=== PATIENT | male | born 2000 | race Caucasian/White ===

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

== ENCOUNTER 2020-10-30 18:03 | Observation (INO) ==
[2020-10-30] MEDS ORDERED: KETOROLAC TROMETHAMINE 15 MG/ML VIAL IV STA (18:22)
[2020-10-30] MEDS ORDERED: SODIUM CHLORIDE 0.9% 1000ML 1,000 ML IV STA (18:22)
[2020-10-30] MEDS ORDERED: ONDANSETRON INJ 2 MG/ML 2 ML VIAL IV STA (18:22)
--- NOTE | 2020-10-30 18:28 | Emergency Department Note ---
Impression & Plan Acute appendicitis ED Provider Note CHIEF COMPLAINT: Right lower abdominal pain HISTORY OF PRESENTING ILLNESS: This is a 20-year-old male who presents to the emergency department by private vehicle with complaint of right-sided abdominal pain that started yesterday and has gotten progressively worse today. Patient states that the pain is worse with walking, going over bumps in his car, and bending over at the waist, he describes it as a dull ache and it has been constant, he rates the pain 6/10. He has not tried any medications for the pain. He has had associated nausea and a very poor appetite today. He last ate solid food around noon and drank some water around 4:30 PM today. He has felt feverish and had some chills this evening, but he did not check his temperature. He had a bowel movement a few hours ago and notes that it was loose. He denies any watery diarrhea or constipation, no bloody or black stools. He has not vomited. He denies any urinary symptoms. He denies any history of abdominal problems or surgeries. REVIEW OF SYSTEMS: A complete 10 point review of systems was reviewed with the patient with pertinent positives and negatives as per history of present illness. All else were negative. PAST MEDICAL HISTORY: No significant past medical or surgical history SOCIAL HISTORY: Lives at home, denies tobacco use ALLERGIES: No known allergies PHYSICAL EXAM: CONSTITUTIONAL: Pleasant and cooperative. Nontoxic-appearing and in no acute distress. Mildly dehydrated, but otherwise well appearing and well nourished. HEENT: Normocephalic, atraumatic. Pharynx normal. Tacky mucous membranes. NECK: Supple, full active range of motion without discomfort. RESPIRATORY: Clear to auscultation bilaterally with no wheezing, crackles, rhonchi or stridor. Equal expansion bilaterally. CARDIOVASCULAR: Regular rate and rhythm with no murmurs, rubs or gallops. Normal peripheral perfusion. No edema. GASTROINTESTINAL: Pointedly tender in the right lower quadrant with slight guarding, no rebound tenderness. The abdomen is otherwise nontender, soft and nondistended. No palpable masses or HSM. Bowel sounds present in all quadrants. Mild right-sided CVA tenderness to percussion. No left-sided CVA tenderness. MUSCULOSKELETAL: Full range of motion of all joints without discomfort. INTEGUMENTARY: No rash or other significant dermatologic conditions noted. NEUROLOGIC: Alert and oriented X 4 with normal affect. Normal strength and sensation in all 4 extremities. Normal speech. Normal gait observed. ED COURSE AND MEDICAL DECISION MAKING: CC: Patient presenting with complaint of right lower abdominal pain DIFFERENTIAL DIAGNOSIS: Includes, but not limited to appendicitis, mesenteric adenitis, epiploic appendagitis, infections, diverticulitis, UTI, small bowel obstruction, inflammatory bowel disease, renal colic/ureteral stone, PUD, biliary pathology, hernia, volvulus, constipation, as well as other pathologies. INTERPRETATION OF LABS: Leukocytosis, no anemia, normal platelets, no significant electrolyte abnormalities, normal renal function, normal liver enzymes and lipase. COVID-19 negative. MEDICATION RECONCILIATION: I attest that I have personally reviewed the patient's current medication list. INITIAL VITAL SIGNS REVIEW: I reviewed the patient's initial vital signs and interpret them as follows: T: Afebrile; BP: Normotensive; HR: Within normal limits; RR: Within normal limits; Pulse Ox: Within normal limits on room air. MDM SUMMARY: Patient was evaluated at bedside, history and physical exam performed. Patient is alert and oriented, in no acute distress, resting calmly in stretcher. He is afebrile and nontoxic-appearing, but does appear to be mildly dehydrated clinically. He is quite tender to palpation over the right lower quadrant with some guarding, but no acute abdomen/peritoneal signs. Orders were placed for labs, UA, IV fluid bolus for hydration, IV Toradol for pain, IV Zofran for nausea, CT abdomen/pelvis with IV contrast to evaluate for abdominal pain. Patient discussed with Dr. Queen, who agrees with my assessment, plan, and disposition. Labs and imaging reviewed, labs notable for leukocytosis. CT imaging is concerning for possible acute appendicitis. I spoke on the phone with Dr. Moralez, general surgery, who agrees to come in and evaluate the patient for possible appendicitis. I did give the patient a dose of IV Mefoxin per his recommendation. Patient reassessed multiple times throughout ED stay, he has remained hemodynamically stable and afebrile, he notes his pain and nausea are improved after the Toradol and Zofran. The patient was updated on all results and plan for evaluation by the surgeon and possible surgery, all questions were answered to the best my ability and the patient was agreeable to this plan. After evaluation, Dr. Moralez is planning to take the patient to the OR this evening. The patient was stable at time of admission. The chart was completed utilizing [employer] Speech voice recognition software. Grammatical errors, random word insertions, pronoun errors, and incomplete sentences are an occasional consequence of this system due to software li mitations, ambient noise, and hardware issues. Any formal questions or concerns about the content, text, or information contained within the body of this dictation should be directly addressed to the nurse practitioner for clarification. Past Med/Surg History Social History Smoking Status: Never smoker Feels Safe at Home: Yes Allergies Allergies Allergy/AdvReac Type Severity Reaction Status Date / Time No Known Allergies Allergy Unverified 10/30/20 18:46 Home Meds Home Medications Medication Instructions Recorded Confirmed No Known Home Medications 10/30/20 10/30/20 Results & Data (ED) Vital Signs Vital Signs - 24 hr 10/30/20 18:05 10/30/20 18:30 Temperature 36.5 C Temperature Source Skin Pulse Rate 78 Pulse Rate [Apical] 83 Pulse Rhythm [Apical] Regular Respiratory Rate 20 16 Respiratory Effort / Characteristics Non-Labored Spontaneous Non-Labored Respiratory Depth Normal Normal Blood Pressure 137/79 Blood Pressure [Right Arm] 139/75 Blood Pressure Mean 98 Blood Pressure Mean [Right Arm] 96 Pulse Oximetry 97 99 Oxygen Delivery Method Room Air Room Air Sepsis Recent Fever Within 48 Hours No Sepsis New/Unexplained Change in Mental Status N/A Sepsis Action Taken by Nursing No Action Required Laboratory Data Result diagrams: 10/30/20 18:31 10/30/20 18:31 Lab Results 10/30/20 10/30/20 10/30/20 Range/Units 18:31 18:31 19:12 WBC 20.04 H (4.8-10.8) K/uL RBC 4.99 (4.7-6.1) M/uL Hgb 16.0 (14.0-18.0) g/dL Hct 45.7 (42-52) % MCV 91.6 (80-100) fL MCH 32.1 (25-34) pg MCHC 35.0 (32-36) g/dL RDW Std Deviation 44.2 (36.4-46.3) fL RDW Coeff of Kit 13.3 (11.5-14.5) % Plt Count 273 (130-400) K/uL MPV 10.5 H (7.4-10.4) fL Immature Gran % (Auto) 0.2 % Neut % (Auto) 83.7 % Lymph % (Auto) 7.2 % Marin % (Auto) 8.7 % Eos % (Auto) 0.1 % Baso % (Auto) 0.1 % Neut # (Auto) 16.75 H (1.4-6.5) K/uL Lymph # (Auto) 1.45 (1.2-3.4) K/uL Marin # (Auto) 1.75 H (0.11-0.59) K/uL Eos # (Auto) 0.02 (0-0.5) K/uL Baso # (Auto) 0.02 (0-0.2) K/uL Immature Gran # (Auto) 0.05 H (0.00-0.02) K/uL Sodium 136 (136-145) mmol/L Potassium 3.5 (3.5-5.1) mmol/L Chloride 101 (98-107) mmol/L Carbon Dioxide 32 (21-32) mmol/L Anion Gap 3.0 (3-11) BUN 13 (7-18) mg/dl Creatinine 0.99 (0.6-1.4) mg/dl Est Cr Clr Drug Dosing 124.7 ml/min Est GFR ( Amer) 124.8 ml/min Est GFR (Non-Af Amer) 107.7 ml/min BUN/Creatinine Ratio 13.5 (10-20) Glucose 99 (70-99) mg/dl Calcium 8.6 (8.5-10.1) mg/dl Total Bilirubin 0.5 (0.2-1) mg/dl AST 20 (15-37) U/L ALT 33 (12-78) U/L Alkaline Phosphatase 61 (45-117) U/L Total Protein 8.6 H (6.4-8.2) gm/dl Albumin 4.4 (3.4-5.0) gm/dl Globulin 4.2 H (2.5-4.0) gm/dl Albumin/Globulin Ratio 1.0 (0.9-2) Lipase 94 (73-393) U/L COVID-19 Eval Order Covid19 at [facility] SARS-CoV-2 (PCR) (Negative) 10/30/20 Range/Units 19:12 WBC (4.8-10.8) K/uL RBC (4.7-6.1) M/uL Hgb (14.0-18.0) g/dL Hct (42-52) % MCV (80-100) fL MCH (25-34) pg MCHC (32-36) g/dL RDW Std Deviation (36.4-46.3) fL RDW Coeff of Kit (11.5-14.5) % Plt Count (130-400) K/uL MPV (7.4-10.4) fL Immature Gran % (Auto) % Neut % (Auto) % Lymph % (Auto) % Marin % (Auto) % Eos % (Auto) % Baso % (Auto) % Neut # (Auto) (1.4-6.5) K/uL Lymph # (Auto) (1.2-3.4) K/uL Marin # (Auto) (0.11-0.59) K/uL Eos # (Auto) (0-0.5) K/uL Baso # (Auto) (0-0.2) K/uL Immature Gran # (Auto) (0.00-0.02) K/uL Sodium (136-145) mmol/L Potassium (3.5-5.1) mmol/L Chloride (98-107) mmol/L Carbon Dioxide (21-32) mmol/L Anion Gap (3-11) BUN (7-18) mg/dl Creatinine (0.6-1.4) mg/dl Est Cr Clr Drug Dosing ml/min Est GFR ( Amer) ml/min Est GFR (Non-Af Amer) ml/min BUN/Creatinine Ratio (10-20) Glucose (70-99) mg/dl Calcium (8.5-10.1) mg/dl Total Bilirubin (0.2-1) mg/dl AST (15-37) U/L ALT (12-78) U/L Alkaline Phosphatase (45-117) U/L Total Protein (6.4-8.2) gm/dl Albumin (3.4-5.0) gm/dl Globulin (2.5-4.0) gm/dl Albumin/Globulin Ratio (0.9-2) Lipase (73-393) U/L COVID-19 Eval Order SARS-CoV-2 (PCR) NEGATIVE (Negative) Administered Medications Discontinued Medications Sodium Chloride (Nss 1000ml) 1,000 mls @ 999 mls/hr IV .Q1H1M STA Stop: 10/30/20 19:22 Last Infusion: 10/30/20 20:23 Dose: 0 mls/hr Documented by: [id number] Admin: 10/30/20 18:37 Dose: 999 mls/hr Documented by: [id number] Cefoxitin Sodium (Mefoxin) 2,000 mg in 60 mls @ 100 mls/hr IV NOW STA Stop: 10/30/20 20:56 Last Admin: 10/30/20 20:34 Dose: 100 mls/hr Documented by: [id number] Ioversol (Optiray 320 100ml) 94 ml IV ONCE ONE Stop: 10/30/20 19:20 Last Admin: 10/30/20 19:20 Dose: 1 ml Documented by: [id number] Ketorolac Tromethamine (Ketorolac Tromethamine 15 Mg/Ml Vial) 10 mg IV NOW STA Stop: 10/30/20 18:23 Last Admin: 10/30/20 18:37 Dose: 10 mg Documented by: [id number] Ondansetron HCl (Ondansetron Inj 2 Mg/Ml 2 Ml Vial) 4 mg IV NOW STA Stop: 10/30/20 18:23 Last Admin: 10/30/20 18:37 Dose: 4 mg Documented by: [id number] Imaging Data Radiologist's Impression: Abdomen/Pelvis CT 10/30/20 18:22 CT abd pelvis IV con only CLINICAL HISTORY: RLQ pain COMPARISON STUDY: None. TECHNIQUE: A dose lowering technique was utilized adhering to the principles of ALARA. CT DOSE: 361.59 mGy.cm FINDINGS: Lower chest: Limited evaluation of lung bases shows no evidence of acute abnormalities.. Liver: The contrast-enhanced liver is normal in size, contour, and attenuation. There is no intrahepatic biliary ductal dilatation. The hepatic veins and portal veins are patent. Gallbladder: Unremarkable. Spleen: Normal in size and attenuation. Pancreas: Unremarkable. Adrenal glands: Unremarkable. Kidneys: There is symmetric renal cortical enhancement. The kidneys are normal in size without hydronephrosis. Pelvic viscera: The bladder, and pelvic viscera are unremarkable. Bowel: Bowel loops are nondilated. Appendix is not dilated and fluid-filled. There is mild fat stranding is seen within right lower quadrant and few focal areas of increased attenuation within cecum (3/254). A few slightly prominent lymph nodes are seen within the right lower quadrant. Peritoneum: There is no intraperitoneal free air or abdominal ascites. Vasculature: The abdominal aorta is normal in course and caliber. Adenopathy: There is no retroperitoneal lymphadenopathy seen. Skeletal structures: No destructive osseous lesions are seen. IMPRESSION: 1. Nondilated appendix. Inflammatory changes and slightly prominent lymph nodes within the right lower quadrant. Differential diagnosis include developing appendicitis, Meckel diverticulitis or epiploic appendicitis. No drainable fluid collection or free intra-abdominal gas is seen at this time. Please correlate above-mentioned findings with surgical evaluation. Findings where sent to emergency Department at time of this dictation. ACT 112: Positive. There are findings on this exam that require communication between the performing entity and the patient following Patient Test Result Information Act ([place] Act 112) guidelines. The above report was generated using voice recognition software. It may contain grammatical, syntax or spelling errors. Electronically signed by: Julianna Dominguez DO 10/30/2020 8:06 PM Discharge Plan Visit Data Chief Complaint: Abdominal Pain Stated Complaint: RIGHT SIDE SHARP ABDOMINAL PAIN,NAUSEA ED Provider: Denis Queen ED Midlevel Provider: Ree Martinez Discharge Problem: Acute appendicitis Patient Disposition: Admitted As Inpatient Condition: Good Discharge Instructions Interventions: ED Discharge Assessment Last Done: 10/30/20 21:19 Forms Stand Alone Forms: [facility], [facility] Emergency Department, Important Visit Information Prescriptions Prescriptions: No Action No Known Home Medications RF: 0 Referrals Referrals: PCP,NO [Primary Care Provider] - Discharge Problem: Acute appendicitis Qualifiers: Acute appendicitis type: with localized peritonitis Appendicitis gangrene presence: unspecified whether gangrene present Appendicitis perforation presence: unspecified whether perforation present Appendicitis abscess presence: unspecified whether abscess present Qualified Code(s): K35.30 - Acute appendicitis with localized peritonitis, without perforation or gangrene
[2020-10-30 18:42] LABS: Basophils # (auto) 0.02 K/uL (0-0.2); Basophils % (auto) 0.1 %; Eosinophils # (auto) 0.02 K/uL (0-0.5); Eosinophils % (auto) 0.1 %; Hematocrit (blood only) 45.7 % (42-52); Immature Granulocytes # (auto) 0.05 K/uL (0.00-0.02); Immature Granulocytes % (auto) 0.2 %; Lymphocytes # (auto) 1.45 K/uL (1.2-3.4); Lymphocytes % (auto) 7.2 %; Mean Corpuscular Hemoglobin 32.1 pg (25-34); Mean Corpuscular Volume 91.6 fL (80-100); Mean Platelet Volume 10.5 fL (7.4-10.4); Monocytes # (auto) 1.75 K/uL (0.11-0.59); Monocytes % (auto) 8.7 %; Neutrophils # (auto) 16.75 K/uL (1.4-6.5); Neutrophils % (auto) 83.7 %; Platelet Count 273 K/uL (130-400); RDW Coefficient of Variation 13.3 % (11.5-14.5); RDW Standard Deviation 44.2 fL (36.4-46.3); Red Blood Count 4.99 M/uL (4.7-6.1); White Blood Count 20.04 K/uL (4.8-10.8)
[2020-10-30 19:06] LABS: Albumin Level 4.4 gm/dl (3.4-5.0); BUN Creatinine Ratio 13.5 (10-20); Calcium 8.6 mg/dl (8.5-10.1); Creatinine Clr Calc Pharmacy 124.7 ml/min; Est GFR (African American) 124.8 ml/min; Est GFR (Non-African American) 107.7 ml/min; Potassium 3.5 mmol/L (3.5-5.1)
[2020-10-30 19:09] LABS: Bilirubin,Total 0.5 mg/dl (0.2-1); Globulin 4.2 gm/dl (2.5-4.0); Total Protein 8.6 gm/dl (6.4-8.2)
[2020-10-30] MEDS ORDERED: OPTIRAY 320 100ml IV ONE (19:19)
--- NOTE | 2020-10-30 20:07 | CT Scan Report ---
CT abd pelvis IV con only CLINICAL HISTORY: RLQ pain COMPARISON STUDY: None. TECHNIQUE: A dose lowering technique was utilized adhering to the principles of ALARA. CT DOSE: 361.59 mGy.cm FINDINGS: Lower chest: Limited evaluation of lung bases shows no evidence of acute abnormalities.. Liver: The contrast-enhanced liver is normal in size, contour, and attenuation. There is no intrahepa tic biliary ductal dilatation. The hepatic veins and portal veins are patent. Gallbladder: Unremarkable. Spleen: Normal in size and attenuation. Pancreas: Unremarkable. Adrenal glands: Unremarkable. Kidneys: There is symmetric renal cortical enhancement. The kidneys are normal in size without hydron ephrosis. Pelvic viscera: The bladder, and pelvic viscera are unremarkable. Bowel: Bowel loops are nondilated. Appendix is not dilated and fluid-filled. There is mild fat strand ing is seen within right lower quadrant and few focal areas of increased attenuation within cecum (3/ 254). A few slightly prominent lymph nodes are seen within the right lower quadrant. Peritoneum: There is no intraperitoneal free air or abdominal ascites. Vasculature: The abdominal aorta is normal in course and caliber. Adenopathy: There is no retroperitoneal lymphadenopathy seen. Skeletal structures: No destructive osseous lesions are seen. IMPRESSION: 1. Nondilated appendix. Inflammatory changes and slightly prominent lymph nodes within the right low er quadrant. Differential diagnosis include developing appendicitis, Meckel diverticulitis or epiploi c appendicitis. No drainable fluid collection or free intra-abdominal gas is seen at this time. Pleas e correlate above-mentioned findings with surgical evaluation. Findings where sent to emergency Depar tment at time of this dictation. ACT 112: Positive. There are findings on this exam that require communication between the performing entity and the patient following Patient Test Result Information Act ([place] Act 112) guidelines. The above report was generated using voice recognition software. It may contain grammatical, syntax o r spelling errors. Electronically signed by: Julianna Dominguez DO 10/30/2020 8:06 PM
[2020-10-30] MEDS ORDERED: cefOXitin 2,000 MG/60 ML BAG IV STA (20:21)
[2020-10-30] MEDS ORDERED: BUPIVACAINE/EPINEPHRINE 0.5% MPF 1:200,000 30 ML VIAL ONE (21:01)
[2020-10-30] MEDS ORDERED: LABETALOL HCL IV 5 MG/ML 20ML IV PRN (21:08)
[2020-10-30] MEDS ORDERED: ATROPINE SULFATE 0.1 MG/ML 10ML SYR IV PRN (21:08)
[2020-10-30] MEDS ORDERED: ePHEDrine sulfate 50 MG/ML AMP IV PRN (21:08)
[2020-10-30] MEDS ORDERED: ONDANSETRON INJ 2 MG/ML 2 ML VIAL IV PRN ×2 (21:08→23:58)
[2020-10-30] MEDS ORDERED: PHENYLEPHRINE 100MCG/ML 5ML SYR IV PRN (21:08)
[2020-10-30] MEDS ORDERED: HYDROmorphone INJ 1 MG/ML SYRINGE IV PRN (21:08)
[2020-10-30] MEDS ORDERED: MEPERIDINE HCL 25 MG/ML CARP/VIAL IV PRN (21:08)
[2020-10-30] MEDS ORDERED: fentaNYL citrate 100 MCG/2 ML VIAL IV PRN (21:08)
--- NOTE | 2020-10-30 21:13 | History & Physical Report ---
Date of Service October 30, 2020 Assessment & Plan (1) Acute appendicitis: Suspect acute appendicitis. CT scan reviewed. Discussed options with patient both conservative and surgical. I am recommending laparoscopic possible open appendectomy this evening. We discussed bleeding, infection, injury to another organ such as ureter bowel bladder etc., DVT, PE, MN, CVA etc. Following our discussion I answered his questions. We will proceed this evening with laparoscopic/possible open appendectomy History of Present Illness Chief Complaint: Right lower quadrant abdominal pain Primary Care Provider: NO PCP 20-year-old who began with generalized abdominal discomfort and nausea yesterday. Today the pain progressed to the right lower quadrant became more severe. WBC is 20,000. CT shows inflammation in the right lower quadrant with a differential of appendicitis, Meckel's diverticulitis, or epiploic appendagitis Allergies Allergy/AdvReac Type Severity Reaction Status Date / Time No Known Allergies Allergy Unverified 10/30/20 18:46 Home Medications Medication Instructions Recorded Confirmed Type No Known Home Medications 10/30/20 10/30/20 History Past Med/Surg History Social History Smoking Status: Never smoker Feels Safe at Home: Yes Review of Systems All systems reviewed & are unremarkable except as noted in HPI & below Physical Exam Constitutional: WD/WN, vitals as above no acute distress and not ill appearing Eyes: PERRL, conjunctivae normal, anicteric sclerae EOM intact bilaterally ENMT: external ear and nose normal, oropharynx normal Ears: no hearing impairment Neck: trachea midline, no thyromegaly Respiratory: normal respiratory effort; no respiratory distress and does not use accessory muscles Cardiovascular: Rate/Rhythm: regular rate and regular rhythm Gastrointestinal (Abdomen): Soft. Positive McBurney's. Positive heel strike. Positive rebound Skin: no rashes, warm and dry Psychiatric: Orientation: alert, oriented x 3 and cooperative Results & Data ([facility]) Vital Signs (Past 12 Hours) Vital Signs Temp Pulse Pulse Resp BP BP Pulse Ox 10/30/20 18:30 83 16 139/75 99 10/30/20 18:05 36.5 C 78 20 137/79 97
[2020-10-30] MEDS ORDERED: fentaNYL citrate 100 MCG/2 ML VIAL ONE (21:23)
[2020-10-30] MEDS ORDERED: MIDAZOLAM HCL 1 MG/ML 2ML VIAL ONE (21:23)
--- NOTE | 2020-10-30 21:39 | Anesthesiology Consultation ---
Date of Service October 30, 2020 Assessment & Plan (1) Encounter for pre-operative examination: Chart Review Chart Review: Acceptable Risk for Surgery and Patient NOT seen in Pre Admission Testing Consults Requested none History Surgery Operation Date: 10/30/20 21:15 Proposed Procedures p Laparoscopic Appendectomy - Chance Moralez DO Height/Weight Height: 5 ft 11 in Weight: 78.2 kg Allergies Allergy/AdvReac Type Severity Reaction Status Date / Time No Known Allergies Allergy Unverified 10/30/20 18:46 Medications Home Medications Medication Instructions Recorded Confirmed Last Taken No Known Home Medications 10/30/20 10/30/20 Unknown NPO Date Last Intake of Fluids: 10/30/20 Time Last Intake of Fluids: 16:00 Date Last Intake of Solids: 10/30/20 Time Last Intake of Solids: 12:00 Past Surgical History Surgical History H/O shoulder surgery Social History Smoking Status: Never smoker Physical Exam Vital Signs Last Vital Signs Temp 36.5 C 10/30/20 18:05 Pulse 83 10/30/20 18:30 Resp 16 10/30/20 18:30 BP 139/75 10/30/20 18:30 Pulse Ox 99 10/30/20 18:30 Testing Laboratory Results 10/30/20 18:31 10/30/20 18:[address] abd pelvis IV con only CLINICAL HISTORY: RLQ pain COMPARISON STUDY: None. TECHNIQUE: A dose lowering technique was utilized adhering to the principles of ALARA. CT DOSE: 361.59 mGy.cm FINDINGS: Lower chest: Limited evaluation of lung bases shows no evidence of acute abnormalities.. Liver: The contrast-enhanced liver is normal in size, contour, and attenuation. There is no intrahepatic biliary ductal dilatation. The hepatic veins and portal veins are patent. Gallbladder: Unremarkable. Spleen: Normal in size and attenuation. Pancreas: Unremarkable. Adrenal glands: Unremarkable. Kidneys: There is symmetric renal cortical enhancement. The kidneys are normal in size without hydronephrosis. Pelvic viscera: The bladder, and pelvic viscera are unremarkable. Bowel: Bowel loops are nondilated. Appendix is not dilated and fluid-filled. There is mild fat stranding is seen within right lower quadrant and few focal areas of increased attenuation within cecum (3/254). A few slightly prominent lymph nodes are seen within the right lower quadrant. Peritoneum: There is no intraperitoneal free air or abdominal ascites. Vasculature: The abdominal aorta is normal in course and caliber. Adenopathy: There is no retroperitoneal lymphadenopathy seen. Skeletal structures: No destructive osseous lesions are seen. IMPRESSION: 1. Nondilated appendix. Inflammatory changes and slightly prominent lymph nodes within the right lower quadrant. Differential diagnosis include developing appendicitis, Meckel diverticulitis or epiploic appendicitis. No drainable fluid collection or free intra-abdominal gas is seen at this time. Please correlate above-mentioned findings with surgical evaluation. Findings where sent to emergency Department at time of this dictation. ACT 112: Positive. There are findings on this exam that require communication between the performing entity and the patient following Patient Test Result Information Act ([place] Act 112) guidelines. The above report was generated using voice recognition software. It may contain grammatical, syntax or spelling errors. Electronically signed by: Julianna Dominguez DO 10/30/2020 8:06 PM Dictated: 10/30/201948Transcribed: 10/30/201950
[2020-10-30 21:54] LABS: Appearance Urine Cloudy (Clear); Bacteria Urine Automated Negative (Negative); Bilirubin Urine Negative (Negative); Blood Urine Negative (Negative); Cast Urine Automated 0 /lpf (0-5); Color Urine Yellow; Glucose Urine UA Negative (Negative); Ketones Urine Negative (Negative); Leukocyte Esterase Urine Negative (Negative); Nitrite Urine Negative (Negative); Protein Urine Negative (Negative); RBC Urine Automated 0-4 /hpf (0-4); Specific Gravity Urine > 1.045 (1.000-1.030); Urobilinogen Urine Negative (Negative); pH Urine 7.5 (4.5-7.5)
[2020-10-30] MEDS ORDERED: PROPOFOL IV EMULSION 10 MG/ML 20 ML VIAL IV ONE (22:04)
[2020-10-30] MEDS ORDERED: SUCCINYLCHOLINE CHLORIDE 20 MG/ML 10 ML VIAL IV ONE (22:04)
[2020-10-30] MEDS ORDERED: ROCURONIUM BROMIDE 10 MG/ML 5 ML VIAL IV ONE (22:04)
[2020-10-30] MEDS ORDERED: ONDANSETRON INJ 2 MG/ML 2 ML VIAL ONE (22:05)
[2020-10-30] MEDS ORDERED: LIDOCAINE 2% 2 ML VIAL/AMP(20MG/ML) INFIL ONE (22:05)
[2020-10-30] MEDS ORDERED: NEOSTIGMINE METHYLSULFATE 1 MG/ML 10ML VIAL ONE (22:05)
[2020-10-30] MEDS ORDERED: GLYCOPYRROLATE 0.2 MG/ML VIAL ONE (22:05)
[2020-10-30] MEDS ORDERED: DEXAMETHASONE SOD INJ 4 MG/ML VIAL ONE ×2 (22:05)
[2020-10-30] MEDS ORDERED: ESMOLOL HCL INJ 10 MG/ML 10ML VIAL IV ONE (22:10)
[2020-10-30] MEDS ORDERED: KETOROLAC 30 MG/ML VIAL ONE (22:42)
[2020-10-30] MEDS ORDERED: PIPERACILL/TAZOBAC CONSULT ACTIVE PRN (22:45)
--- NOTE | 2020-10-30 22:46 | Operative Report ---
PG Post Operative Report Pre & Post Diagnosis Operation Date: 10/30/20 21:15 Pre-Op Diagnosis: Acute appendicitis Post-Op Diagnosis: epiploic appendagitis with secondary appendicitis I identified the patient and participated in the time-out.: Yes Procedure Operation Date: 10/30/20 21:15 Actual Procedures p Laparoscopic Appendectomy with abdominal washout(Not Applicable) - Chance Moralez DO Surgeon Chance Moralez DO Account Financial Manager radha Rosen Estimated Blood Loss 10 Findings Consistent with Post-Op Diagnosis Specimens appendix Description of Procedure After informed consent was obtained the patient was taken to the operating room and placed in supine position. After successful intubation the left arm was tucked. The abdomen was shaved and sterilely prepped and draped in usual fashion. A supraumbilical incision was made with an 11 blade scalpel and carried down through the soft tissues using cautery. Anterior rectus fascia was opened using cautery and two #0 Vicryl stay sutures were placed. Peritoneum was elevated with hemostats and incised under direct vision using a Metzenbaum scissor. A finger sweep was performed take down any underlying adhesions and a 12 mm Carrero trocar was placed. The abdomen was insufflated to 18 mmHg. A suprapubic 5 mm port and a left lower quadrant 12 mm port were placed under direct vision. The patient was placed in the Trendelenburg position and slightly airplaned to the left. Immediately we noted purulent fluid in the right lower quadrant as well as some generalized inflammation. I began by suctioning out this area. There appeared to be an infarcted epiploica on the cecum. The appendix itself was laying in purulent fluid and appeared to be secondarily inflamed. After irrigating out the right lower quadrant I grasped the appendix and elevated it. A KENNETH brown cartridge linear stapler was used to transect the mesentery of the appendix as well as the appendix itself. It was placed into an Endo Catch bag and removed from the camera port site. I manipulated the infarcted epiploica and normally I would resect this however it was located just anterior to the ileocecal valve. I was concerned that by removing this I could potentially stricture the terminal ileum. I therefore opted not to do this. We did run the terminal ileum backwards for probably 10 feet all of which was normal. There is some purulent fluid in the pelvis as well which we thoroughly irrigated and suctioned out as well as the remainder of the lower abdomen. At the end of the procedure all the irrigant was clear. There was adequate hemostasis. All of the other organs appeared normal. All the trochars were removed and the abdomen was desufflated. The fascia of the camera port as well as left lower quadrant were closed using 0 Vicryl in [id number] fashion. All the wounds were irrigated and closed using 4-0 Monocryl. Marcaine with epinephrine was injected around them for postoperative analgesia and skin glue used as a dressing. Patient was awakened extubated transferred recovery in stable condition. My physician assistant clinical nurse manager was present for the entire case. He helped prep the patient. He helped run the camera during my dissection as well as with wound closure and dressing placement. I attest to the content of the Intraoperative Record and any orders documented therein. Any exceptions are noted below.
[2020-10-30] MEDS ORDERED: PIPERACILLIN/TAZOBACTAM 4.5 GM in DEXTROSE 5% 100 ML IV STA (22:47)
--- NOTE | 2020-10-30 23:49 | Anesthesiology Progress Note ---
Date of Service October 30, 2020 Anesthesia Post Procedure Vital Signs Vital Signs: Temp Pulse Pulse Resp BP BP BP 10/30/20 23:30 37.6 C H 85 22 109/50 L 10/30/20 23:20 80 21 109/50 L 10/30/20 23:10 76 19 112/47 L 10/30/20 23:02 37.8 C H 94 H 16 119/52 L 10/30/20 18:30 83 16 139/75 10/30/20 18:05 36.5 C 78 20 137/79 Pulse Ox 10/30/20 23:30 95 10/30/20 23:20 95 10/30/20 23:10 98 10/30/20 23:02 95 10/30/20 18:30 99 10/30/20 18:05 97 Pain Intensity Right Lower Abdomen: Pain Intensity: 2 Transfer of Care Handoff Completed per policy Notes Mental Status: alert / awake / arousable Patient Amnestic to Procedure: Yes Nausea / Vomiting: adequately controlled Pain: adequately controlled Airway Patency, RR, SpO2: stable & adequate BP & HR: stable & adequate Hydration State: stable & adequate Anesthetic Complications: no major complications apparent and Pt Satisfied with anesthetic care
[2020-10-30] MEDS ORDERED: oxyCODONE HCL SOLN 5 MG/5 ML UDC PO PRN (23:58)
[2020-10-30] MEDS ORDERED: LACTATED RINGER'S 1,000 ML IV SCH (23:58)
[2020-10-30] MEDS ORDERED: MoRPHine SULFATE 4 MG/ML 1 ML CARP\\VIAL IV PRN (23:58)
[2020-10-31] MEDS: ACETAMINOPHEN 1,000 MG/100 ML VIAL IV SCH ×3 (01:05→16:49)
[2020-10-31] MEDS: PIPERACILLIN/TAZOBACTAM 3.375 GM in DEXTROSE 5% 100 ML IV SCH ×3 (02:55→20:04)
--- NOTE | 2020-10-31 05:49 | Surgery Progress Note ---
Date of Service October 31, 2020 Assessment & Plan (1) Acute appendicitis: Postoperative day #1 appendectomy Continue analgesics Continue antiemetics Continue antibiotics in the form of Zosyn while hospitalized Allow clear liquids this morning. If this is tolerated will advance his diet further As above. Feels much better. Appears comfortable. His white blood cell count went up to 23,000 however so I am going to watch him another 24 hours. We will continue IV Zosyn and repeat his WBCs tomorrow. If he continues to do well and WBCs improve we will anticipate discharge tomorrow. Admission and Anticipated Discharge Date Admission Date: October 30, 2020 Subjective Patient notes he is doing well this morning. He has not had any nausea vomiting since his surgery. No BM or flatus since surgery. He has not eaten since his surgery. Physical Exam Gastrointestinal (Abdomen): 3 laparoscopic incisions from his appendectomy are clean dry and intact. His abdomen is soft and nondistended. He has some minor tenderness near her surgical incisions. Results & Data ([facility]) Vital Signs (Past 12 Hours) Vital Signs Temp Pulse Pulse Pulse Resp BP BP 10/31/20 02:55 36.8 C 72 14 107/58 L 10/31/20 01:58 101 H 16 112/65 10/31/20 00:45 37.0 C 82 16 108/55 L 10/31/20 00:22 85 16 107/57 L 10/30/20 23:45 37.2 C 92 H 14 109/57 L 10/30/20 23:30 37.6 C H 85 22 109/50 L 10/30/20 23:20 80 21 109/50 L 10/30/20 23:10 76 19 112/47 L 10/30/20 23:02 37.8 C H 94 H 16 119/52 L 10/30/20 18:30 83 16 10/30/20 18:05 36.5 C 78 20 137/79 BP Pulse Ox 10/31/20 02:55 97 10/31/20 01:58 95 10/31/20 00:45 94 10/31/20 00:22 95 10/30/20 23:45 95 10/30/20 23:30 95 10/30/20 23:20 95 10/30/20 23:10 98 10/30/20 23:02 95 10/30/20 18:30 139/75 99 10/30/20 18:05 97 PG Care Time/CCT Total # of Minutes Spent Total Time Spent with Patient: Total time spent is greater than 50% in coordination of care (as documented) at patient's floor/unit and/or counseling patient: Coding Level of Care Code None Diagnoses Acute appendicitis K35.30 Acute appendicitis type: with localized peritonitis Appendicitis abscess presence: unspecified whether abscess present Appendicitis gangrene presence: unspecified whether gangrene present Appendicitis perforation presence: unspecified whether perforation present (1) Acute appendicitis Acute appendicitis type: with localized peritonitis Appendicitis abscess presence: unspecified whether abscess present Appendicitis gangrene presence: unspecified whether gangrene present Appendicitis perforation presence: uns pecified whether perforation present Qualified Code(s): K35.30 - Acute appendicitis with localized peritonitis, without perforation or gangrene
[2020-10-31 08:19] LABS: Hemoglobin 14.7 g/dL (14.0-18.0); Mean Corpuscular Hemoglobin 31.7 pg (25-34); Mean Corpuscular Volume 90.7 fL (80-100); Mean Platelet Volume 10.4 fL (7.4-10.4); Platelet Count 224 K/uL (130-400); RDW Coefficient of Variation 13.2 % (11.5-14.5); RDW Standard Deviation 43.6 fL (36.4-46.3); Red Blood Count 4.63 M/uL (4.7-6.1); White Blood Count 23.05 K/uL (4.8-10.8)
[2020-10-31 08:43] LABS: Immature Granulocytes # (auto) 0.06 K/uL (0.00-0.02); Immature Granulocytes % (auto) 0.3 %; Lymphocytes # (auto) 0.75 K/uL (1.2-3.4); Lymphocytes % (auto) 3.3 %; Monocytes # (auto) 0.81 K/uL (0.11-0.59); Monocytes % (auto) 3.5 %; Neutrophils # (auto) 21.43 K/uL (1.4-6.5); Neutrophils % (auto) 92.9 %
[2020-11-01] MEDS: ACETAMINOPHEN 1,000 MG/100 ML VIAL IV SCH ×2 (00:33→08:07)
[2020-11-01] MEDS: PIPERACILLIN/TAZOBACTAM 3.375 GM in DEXTROSE 5% 100 ML IV SCH (04:08)
[2020-11-01 06:23] LABS: Basophils # (auto) 0.01 K/uL (0-0.2); Basophils % (auto) 0.1 %; Hematocrit (blood only) 40.7 % (42-52); Hemoglobin 13.9 g/dL (14.0-18.0); Immature Granulocytes # (auto) 0.04 K/uL (0.00-0.02); Immature Granulocytes % (auto) 0.2 %; Lymphocytes # (auto) 2.61 K/uL (1.2-3.4); Lymphocytes % (auto) 15.9 %; Mean Corpuscular Hemoglobin 31.2 pg (25-34); Mean Corpuscular Volume 91.3 fL (80-100); Mean Platelet Volume 10.5 fL (7.4-10.4); Monocytes # (auto) 1.24 K/uL (0.11-0.59); Monocytes % (auto) 7.6 %; Neutrophils # (auto) 12.47 K/uL (1.4-6.5); Neutrophils % (auto) 76.2 %; Platelet Count 214 K/uL (130-400); RDW Coefficient of Variation 13.5 % (11.5-14.5); RDW Standard Deviation 45.1 fL (36.4-46.3); Red Blood Count 4.46 M/uL (4.7-6.1); White Blood Count 16.37 K/uL (4.8-10.8)
[2020-11-01 06:25] LABS: Mean Corpuscular Hgb Conc 34.2 g/dL (32-36)
--- NOTE | 2020-11-01 08:58 | Surgery Progress Note ---
Date of Service November 01, 2020 Assessment & Plan (1) Acute appendicitis: POD#2 lap appy Patient clinically doing well WBC 16 (23), afebrile Tolerating diet and pain well controlled Will plan on discharge to home today on a course of po abx Follow up in clinic with Dr. Moralez in 1-2 weeks as above. doing well. ok for d/c . instructions given. Admission and Anticipated Discharge Date Admission Date: October 30, 2020 Subjective Patient is feeling good. A little bit sore at some of his incisions. He is tolerating a diet without issue. Physical Exam Physical Exam: awake/alert Results & Data ([facility]) Vital Signs (Past 12 Hours) Vital Signs Temp Pulse Resp BP Pulse Ox 11/01/20 07:27 36.6 C 57 L 16 112/62 97 10/31/20 23:24 36.8 C 80 15 111/64 96 PG Care Time/CCT Total # of Minutes Spent Total Time Spent with Patient: Total time spent is greater than 50% in coor dination of care (as documented) at patient's floor/unit and/or counseling patient: Coding Level of Care Code None Diagnoses Acute appendicitis K35.30 Acute appendicitis type: with localized peritonitis Appendicitis abscess presence: unspecified whether abscess present Appendicitis gangrene presence: unspecified whether gangrene present Appendicitis perforation presence: unspecified whether perforation present (1) Acute appendicitis Acute appendicitis type: with localized peritonitis Appendicitis abscess presence: unspecified whether abscess present Appendicitis gangrene presence: unspecified whether gangrene present Appendicitis perforation presence: unspecified whether perforation present Qualified Code(s): K35.30 - Acute appendicitis with localized peritonitis, without perforation or gangrene
--- NOTE | 2020-11-05 14:12 | Discharge Summary ---
Date of Service November 05, 2020 Admission HPI Per Admitting Provider 20-year-old who began with generalized abdominal discomfort and nausea yesterday. Today the pain progressed to the right lower quadrant became more severe. WBC is 20,000. CT shows inflammation in the right lower quadrant with a differential of appendicitis, Meckel's diverticulitis, or epiploic appendagitis Principal Diagnosis acute appendicitis Discharge Exam awake/alert Constitutional well developed and well nourished; no acute distress Respiratory normal respiratory effort Gastrointestinal (Abdomen) Inspection/Auscultation: + abdominal surgical incision (c/d/i) Percussion/Palpation: abdomen soft Discharge Data Allergies Allergy/AdvReac Type Severity Reaction Status Date / Time No Known Allergies Allergy Unverified 10/30/20 18:46 Consultations 10/30/20 21:24 ED Decision to Admit Stat Procedures Performed Operation Date: 10/30/20 21:15 Actual Procedures p Laparoscopic Appendectomy(Not Applicable) - Chance Moralez, Ordered Studies 10/30/20 18:22 CT abd pelvis IV con only Stat Hospital Course (1) Acute appendicitis: This is a 20y M who presented to the [facility] ED on 6 with complaints of generalized abdominal pain that progressed to the RLQ. Workup in the ER with a CT a/p revealed findings of inflammatory changes in the RLQ, raising the possibility of appendicitis. WBC 20. Decision was made to take the patient to the OR. Intraop he was found to have epiploic appendagitis with secondary appendicitis. Patient ultimately underwent a laparoscopic appendectomy and abdominal washout. The patient tolerated the procedure well, see op note for full details. The patient recovered in the PACU and was transferred to the med/surg unit in stable condition. POD#1 patient's WBC 23, therefore he remained admitted for close monitoring. He continued on IV abx. His diet was advanced as tolerated without issues and pain well managed. On POD#2 patient's WBC 16. He was eating well, pain well controlled, and incisions c/d/i. He was deemed stable for discharge to home on a course of po abx and instructions to follow up in clinic with Dr. Moralez in 1-2 weeks. Total Time Total Time Spent Total Time Spent (In Minutes): 10 Discharge Plan Discharge Items Patient Disposition: Home - Self-Care Reason For Visit: APPY Discharge Diagnosis: Appendicitis Condition on Discharge: Good Activity: As commented below Activity Comment: Walk daily Lifting: No more than 10 pounds Bathing: May shower/bathe in 3 days Exercise/Sports: Wait until after follow-up appointment Driving/Machine Use: When cleared by Dr. Moralez Non-emergency contact: Surgeon Call non-emergency contact if: you have any medication questions, your symptoms worsen, your pain is not controlled, your pain is worsening, your pain is concerning for you, you have a fever, your temperature is above 101.5, your wound has increased redness, your wound has increased drainage and your wound pain has increased Follow-up/Referrals: Chance Moralez, DO [Surgeon] - 11/12/20 10:00 am () PCP,NO [Primary Care Provider] - Diet: Regular Addtl Attending Provider Instructions: Call office with questions Pending Studies at Discharge: No Stand-Alone Forms: [facility] Nitro[facility], Opioid Pain Management, Smoking Cessation, Virtual Emergency Department, Important Visit Information Medications and DC Order Prescriptions: New ibuprofen 200 mg capsule 400 mg PO Q6H PRN (Reason: pain) Qty: 30 RF: 0 acetaminophen 325 mg capsule 650 mg PO Q6H PRN (Reason: fever or pain) Qty: 30 RF: 0 oxycodone 5 mg tablet 5 - 10 mg PO .[id number] PRN (Reason: pain, for initial therapy, max 6 tabs per day) Qty: 10 RF: 0 amoxicillin-pot clavulanate [Augmentin] 875-125 mg tablet 1 tab PO BID Qty: 14 RF: 0 No Action No Known Home Medications RF: 0 Discharge Orders: Discharge Order (Routine); Ordered 11/01/20 Ordered By: Julisa Schmid/Other Patient Handouts: DVT Post Op Prevention Admission Data Admit Date/Time: 10/30/20 22:45 Attending Provider: Chance Moralez Admit Provider: Yosvany Rosen Primary Care Provider: PCP,NO Other Providers: Chance Moralez Other Interventions: Discharge Summary Assessment (RN) Last Done: 11/01/20 08:05 Coding Level of Care Code D/C Day Management <30 mins Diagnoses Acute appendicitis K35.30 Acute appendicitis type: with localized peritonitis Appendicitis abscess presence: unspecified whether abscess present Appendicitis gangrene presence: unspecified whether gangrene present Appendicitis perforation presence: unspecified whether perforation present
== END 2020-11-01 11:51 | disposition home or self-care (01) ==
LOC: ED 18:03 → 3N 21:19 → OR 21:19 → 3N 11-01 00:50
DX: K35.30 Acute appendicitis with localized peritonitis, without perforation or gangrene; K63.89 Other specified diseases of intestine